=== PATIENT | female | born 1955 | race Two or more races ===

== ENCOUNTER 2019-06-23 17:05 | Emergency (ER) | payer MEDICARE ==
[~2019-06-23] VITALS: Ht 157.5 cm; Wt 65.8 kg
[~2019-06-23 17:05] MED LIST: METO10 PO; OXYACE5T PO; OXYC5 PO; PRED20 PO; ROPI2 PO; RXOXYACE PO; SERT100 PO
== END 2019-06-23 20:49 | disposition home or self-care (01) ==
LOC: ER 17:05
DX: M50.322 Other cervical disc degeneration at C5-C6 level (principal); M50.323 Other cervical disc degeneration at C6-C7 level; M62.838 Other muscle spasm; Z79.891 Long term (current) use of opiate analgesic; Z79.899 Other long term (current) drug therapy; Z79.52 Long term (current) use of systemic steroids; F32.9 Major depressive disorder, single episode, unspecified
CPT/HCPCS: 96372; 99283-25; J1100; J1885; J3010

== ENCOUNTER → 2019-07-09 | Outpatient (CLI) | payer MEDICARE | END | disposition home or self-care (01) | LOC: LAB 14:08 → LAB SHORT 14:08 | DX: E11.9 Type 2 diabetes mellitus without complications (principal) | CPT/HCPCS: 82043 ==

== ENCOUNTER → 2020-09-18 | Outpatient (CLI) | payer MEDICARE ==
[2020-09-18 22:49] LABS: Microalb/Creat Ratio UR, Rand 21.899 mg/g (0.000-30.000); Microalbumin, Random Urine 39.2 mg/L (0.000-20.000)
== END | disposition home or self-care (01) ==
LOC: LAB 15:00 → LAB SHORT 15:00
PROVIDERS: Family Medicine
DX: E11.59 Type 2 diabetes mellitus with other circulatory complications (principal)
CPT/HCPCS: 82043; 82570

== ENCOUNTER → 2022-01-07 | Outpatient (CLI) | payer MEDICARE | END | disposition home or self-care (01) | LOC: LAB SHORT 14:29 → LAB 14:29 | DX: E11.9 Type 2 diabetes mellitus without complications (principal) | CPT/HCPCS: 82043 ==

== ENCOUNTER 2022-06-18 07:36 | Day surgery (SDC) | payer MEDICARE ==
[~2022-06-18] VITALS: Ht 157.5 cm; Wt 59.0 kg
== END 2022-06-18 09:56 | disposition home or self-care (01) ==
LOC: ORSCSDS 07:36
PROVIDERS: Orthopaedic Surgery
PROC: 01N50ZZ Release Median Nerve, Open Approach (ICD-10-PCS; principal; 2022-06-18 09:00)
DX: G56.01 Carpal tunnel syndrome, right upper limb (principal); I10 Essential (primary) hypertension; E78.5 Hyperlipidemia, unspecified; F32.A Depression, unspecified; E11.9 Type 2 diabetes mellitus without complications; Z79.899 Other long term (current) drug therapy
CPT/HCPCS: 82947; J0690; J2250; J3010; J7120

== ENCOUNTER 2022-07-03 17:49 | Inpatient (IN) | payer MEDICARE ==
[~2022-07-03] VITALS: Ht 157.5 cm; Wt 59.0 kg
[2022-07-03 23:21] LABS: BASOPHILS ABSOLUTE AUTO 0.05 K/mm3 (0.00-0.23); BASOPHILS PERCENT AUTO 1 % (0-2); EOSINOPHILS ABSOLUTE AUTO 0.06 K/mm3 (0.00-0.68); EOSINOPHILS PERCENT AUTO 1 % (0-6); Hematocrit 29.5 % (33.0-51.0); Hemoglobin 9.5 g/dL (11.5-16.0); IMMATURE GRAN ABSOLUTE AUTO 0.01 K/mm3 (0.00-0.10); IMMATURE GRAN PERCENT AUTO 0 % (0-1); LYMPHOCYTES ABSOLUTE AUTO 1.95 K/mm3 (0.84-5.20); LYMPHOCYTES PERCENT AUTO 33 % (21-46); MONOCYTES ABSOLUTE AUTO 0.47 K/mm3 (0.16-1.47); MONOCYTES PERCENT AUTO 8 % (4-13); Mean Corpuscular HGB 30.3 pg (26.0-34.0); Mean Corpuscular HGB Conc 32.2 g/dL (31.5-36.5); Mean Corpuscular Volume 94 fL (80-100); Mean Platelet Volume 9.7 fL (9.1-12.4); NEUTROPHILS PERCENT AUTO 57 % (41-73); Platelet Count 451 K/mm3 (150-400); RDW Coefficient Variation 13.8 % (11.7-14.2); RDW Standard Deviation 46.9 fL (35.1-46.3); Red Blood Cell Count 3.14 M/mm3 (3.80-5.20); White Blood Cell Count 5.94 K/mm3 (4.00-11.30)
[2022-07-03 23:38] LABS: Albumin, Blood 2.7 g/dL (3.4-5.0); Albumin/Globulin Ratio 0.9 (0.8-1.8); Bilirubin, Total 0.3 mg/dL (0.1-1.0); Bun/Creatinine Ratio 15.2 (12.0-20.0); Calcium, Blood 11.2 mg/dL (8.5-10.1); Creatinine, Blood 0.79 mg/dL (0.40-1.00); Potassium, Blood 3.7 mmol/L (3.5-5.5); Total Protein, Blood 5.7 g/dL (6.4-8.2)
[2022-07-04 01:01] LABS: Prothrombin Time Results 10.5 Sec (9.7-11.5)
== END 2022-07-04 13:16 | disposition home or self-care (01) | DRG 93 ==
LOC: ER 17:49 → ERHOLD 07-04 03:18
PROVIDERS: Family Medicine; Student in an Organized Health Care Education/Training Program; ADMIT Family Medicine
DX: G95.29 Other cord compression (principal); E83.52 Hypercalcemia; E11.9 Type 2 diabetes mellitus without complications; I10 Essential (primary) hypertension; M79.81 Nontraumatic hematoma of soft tissue; M48.02 Spinal stenosis, cervical region; M25.78 Osteophyte, vertebrae; F32.A Depression, unspecified; M54.50 Low back pain, unspecified; Z96.659 Presence of unspecified artificial knee joint; Z79.899 Other long term (current) drug therapy; Z98.890 Other specified postprocedural states; Z79.52 Long term (current) use of systemic steroids; Z88.8 Allergy status to other drugs, medicaments and biological substances; Z79.891 Long term (current) use of opiate analgesic
CPT/HCPCS: 36415; 80053; 82330; 82728; 82947; 83540; 83550; 83605; 83970; 85025; 85610; 87040; 96374; 96375; 96376; 99285-25; A9270; J1170; J2405; J3010

== ENCOUNTER → 2022-11-22 | Outpatient (CLI) | payer MEDICARE ==
[2022-11-28 12:47] LABS: Performing Lab SYMBIODX; Test Name TISSUE BIOPSY
== END ==
LOC: LAB SHORT 11:41 → LAB 11:41
PROVIDERS: Pathology Clinical Pathology/Laboratory Medicine
DX: M67.431 Ganglion, right wrist (principal); M25.531 Pain in right wrist
CPT/HCPCS: 88305; 88313

== ENCOUNTER 2023-08-08 06:12 | Emergency (ER) | payer MEDICARE ==
[~2023-08-08] VITALS: Ht 157.5 cm; Wt 59.0 kg
[2023-08-08 07:02] LABS: BASOPHILS ABSOLUTE AUTO 0.14 K/mm3 (0.00-0.23); BASOPHILS PERCENT AUTO 2 % (0-2); EOSINOPHILS ABSOLUTE AUTO 0.05 K/mm3 (0.00-0.68); EOSINOPHILS PERCENT AUTO 1 % (0-6); Hematocrit 32.2 % (33.0-51.0); Hemoglobin 10.7 g/dL (11.5-16.0); IMMATURE GRAN ABSOLUTE AUTO 0.01 K/mm3 (0.00-0.10); IMMATURE GRAN PERCENT AUTO 0 % (0-1); LYMPHOCYTES ABSOLUTE AUTO 1.06 K/mm3 (0.84-5.20); LYMPHOCYTES PERCENT AUTO 17 % (21-46); MONOCYTES ABSOLUTE AUTO 1.28 K/mm3 (0.16-1.47); MONOCYTES PERCENT AUTO 21 % (4-13); Mean Corpuscular HGB 32.4 pg (26.0-34.0); Mean Corpuscular HGB Conc 33.2 g/dL (31.5-36.5); Mean Corpuscular Volume 98 fL (80-100); NEUTROPHILS ABSOLUTE AUTO 3.63 K/mm3 (1.96-9.15); NEUTROPHILS PERCENT AUTO 59 % (41-73); Platelet Count 329 K/mm3 (150-400); RDW Coefficient Variation 14.5 % (11.7-14.2); RDW Standard Deviation 51.4 fL (35.1-46.3); White Blood Cell Count 6.17 K/mm3 (4.00-11.30)
[2023-08-08 07:12] LABS: Bun/Creatinine Ratio 38.6 (12.0-20.0); Calcium, Blood 8.5 mg/dL (8.5-10.1); Creatinine, Blood 0.39 mg/dL (0.40-1.00); Potassium, Blood 4.3 mmol/L (3.5-5.5)
[2023-08-08] MEDS ORDERED: AMOCLA250S PO (08:34)
[2023-08-08] MEDS ORDERED: Ondansetron4 MG/2 ML IM (08:34)
[2023-08-08 10:18] VITALS: BP 128/80
== END 2023-08-08 09:49 | disposition home or self-care (01) ==
LOC: ER 06:12
PROVIDERS: Student in an Organized Health Care Education/Training Program
DX: J95.01 Hemorrhage from tracheostomy stoma (principal); T85.79XA Infection and inflammatory reaction due to other internal prosthetic devices, implants and grafts, initial encounter; L03.221 Cellulitis of neck; X58.XXXA Exposure to other specified factors, initial encounter; Z88.8 Allergy status to other drugs, medicaments and biological substances; E11.9 Type 2 diabetes mellitus without complications; I10 Essential (primary) hypertension
CPT/HCPCS: 31720; 70491; 71046; 80048; 85025; 96374; 99285-25; A9270; J2270; Q9967

== ENCOUNTER → 2023-08-12 | Outpatient (CLI) | payer MEDICARE ==
[~2023-08-12] MED LIST changes: +AMOCLA250S PO; +Ondansetron4 MG/2 ML IM
== END ==
LOC: LAB 16:20 → LAB SHORT 16:20
DX: Z43.0 Encounter for attention to tracheostomy (principal)
CPT/HCPCS: 87070; 87075; 87185; 87205

== ENCOUNTER 2023-10-26 19:55 | Emergency (ER) | payer MEDICARE ==
[~2023-10-26] VITALS: Ht 157.5 cm; Wt 56.2 kg
[2023-10-26 20:39] VITALS: BP 112/57
[2023-10-26] MEDS ORDERED: BISA10S PR (21:44)
== END 2023-10-26 23:00 | disposition home or self-care (01) ==
LOC: ER 19:55
DX: K59.00 Constipation, unspecified (principal); K62.5 Hemorrhage of anus and rectum; E11.9 Type 2 diabetes mellitus without complications; I10 Essential (primary) hypertension; E85.81 Light chain (AL) amyloidosis; Z93.0 Tracheostomy status
CPT/HCPCS: 74018; 99284-25; A9270

== ENCOUNTER 2023-11-05 18:28 | Inpatient (IN) | payer MEDICARE ==
[~2023-11-05] VITALS: Ht 157.5 cm; Wt 63.0 kg
[~2023-11-05 18:28] MED LIST changes: +BISA10S PR
[2023-11-05 19:35] LABS: Calcium, Ionized (POC) 1.17 mmol/L (1.10-1.46); Chloride (POC) 94 mmol/L (98-108); Creatinine (POC) 0.4 mg/dL (0.6-1.0); Glucose (ISTAT POC) 150 mg/dL (70-99); Hemoglobin (POC) 10.2 g/dL (12.0-16.0); Potassium (POC) 4.2 mmol/L (3.5-5.5); Sodium (POC) 134 mmol/L (135-148); Total CO2 (POC) 31 mmol/L (21-32)
[2023-11-05 19:43] LABS: BASOPHILS ABSOLUTE AUTO 0.17 K/mm3 (0.00-0.23); BASOPHILS PERCENT AUTO 3 % (0-2); EOSINOPHILS ABSOLUTE AUTO 0.04 K/mm3 (0.00-0.68); EOSINOPHILS PERCENT AUTO 1 % (0-6); Hematocrit 30.4 % (33.0-51.0); Hemoglobin 9.9 g/dL (11.5-16.0); IMMATURE GRAN ABSOLUTE AUTO 0.02 K/mm3 (0.00-0.10); IMMATURE GRAN PERCENT AUTO 0 % (0-1); LYMPHOCYTES ABSOLUTE AUTO 1.76 K/mm3 (0.84-5.20); LYMPHOCYTES PERCENT AUTO 29 % (21-46); MONOCYTES ABSOLUTE AUTO 1.15 K/mm3 (0.16-1.47); MONOCYTES PERCENT AUTO 19 % (4-13); Mean Corpuscular HGB 32.6 pg (26.0-34.0); Mean Corpuscular HGB Conc 32.6 g/dL (31.5-36.5); Mean Corpuscular Volume 100 fL (80-100); Mean Platelet Volume 11.8 fL (9.1-12.4); NEUTROPHILS ABSOLUTE AUTO 2.89 K/mm3 (1.96-9.15); NEUTROPHILS PERCENT AUTO 48 % (41-73); Platelet Count 284 K/mm3 (150-400); RDW Coefficient Variation 15.7 % (11.7-14.2); RDW Standard Deviation 57.3 fL (35.1-46.3); Red Blood Cell Count 3.04 M/mm3 (3.80-5.20); White Blood Cell Count 6.03 K/mm3 (4.00-11.30)
[2023-11-05 20:06] LABS: International Normalized Ratio 1.01; Prothrombin Time Results 10.6 Sec (9.7-11.5)
[2023-11-05 20:13] LABS: Albumin, Blood 2.2 g/dL (3.4-5.0); Albumin/Globulin Ratio 0.7 (0.8-1.8); Bilirubin, Total 0.2 mg/dL (0.1-1.0); Bun/Creatinine Ratio 58.6 (12.0-20.0); Calcium, Blood 8.7 mg/dL (8.5-10.1); Creatinine, Blood 0.32 mg/dL (0.40-1.00); Globulin, Blood 3.1 g/dL (2.2-4.0); Potassium, Blood 4.4 mmol/L (3.5-5.5); Total Protein, Blood 5.3 g/dL (6.4-8.2)
[2023-11-05] MEDS ORDERED: CELE100 PO (21:41)
[2023-11-05] MEDS ORDERED: Revlimid25 MG PO (21:42)
[2023-11-05] MEDS ORDERED: ATOR20 PO (21:42)
[2023-11-05] MEDS ORDERED: DEXA1 PO (21:44)
[2023-11-05] MEDS ORDERED: VENL75ER PO (21:45)
[2023-11-05] MEDS ORDERED: FENTANYL TOP (21:45)
[2023-11-05] MEDS ORDERED: Vitamin D1000 UNI1 PO (21:46)
[2023-11-05 22:08] VITALS: BP 128/78
[2023-11-05 23:10] VITALS: BP 136/60
[2023-11-05 23:34] VITALS: BP 134/78
[2023-11-06] VITALS (9 sets, daily range): BP systolic 103–122; BP diastolic 52–76
[2023-11-06 05:15] LABS: Hematocrit 27.7 % (33.0-51.0); Hemoglobin 9.3 g/dL (11.5-16.0); Mean Corpuscular HGB 32.5 pg (26.0-34.0); Mean Corpuscular HGB Conc 33.6 g/dL (31.5-36.5); Mean Corpuscular Volume 97 fL (80-100); Mean Platelet Volume 11.5 fL (9.1-12.4); Platelet Count 212 K/mm3 (150-400); RDW Standard Deviation 57.2 fL (35.1-46.3); Red Blood Cell Count 2.86 M/mm3 (3.80-5.20); White Blood Cell Count 6.53 K/mm3 (4.00-11.30)
--- NOTE | 2023-11-06 05:29 | NUR ---
END OF SHIFT NOTE: PT ADMITTED WITH COMPLAINTS OF BLOOD IN STOOL. PT A/OX4. DAUGHTER AT BEDSIDE TO HELP COMMUNICATE PT NEEDS. PT ONLY MOUTHS WORDS. PT COMPLAINED OF ABDOMINAL PAIN AND MEDICATED PER DEC. PT HAS CHRONIC TRACH THAT WAS PLACED SEVERAL MONTHS AGO. PT HAS NEEDED SUCTIONED MULTIPLE TIMES T/O SHIFT. SPO2 >95% ON RA. 1 UNIT OF RBCS ADMINISTERED, PT TOLERATED WELL. BOWEL PREP ADMINISTERED VIA PEG TUBE. PT INCONTINENT OF BOWEL DUE TO COPIOUS AMOUNTS OF BLOODY STOOL. PT BEDBOUND AT BASELINE BUT ABLE TO COMMUNICATE DESIRE TO CHANGE POSITION IN BED. NO PRESSURE SORES PRESENT ON ADMISSION. PT HAS 2 PATENT PERIPHERAL IVS. LR RUNNING PER DEC. HGB STABLE. CALL LIGHT IN REACH AND BED IN LOWEST POSITION. PT AND FAMILY EDUCATED ON PLAN OF CARE.
[2023-11-06 05:42] LABS: Bun/Creatinine Ratio 52.5 (12.0-20.0); Calcium, Blood 8.5 mg/dL (8.5-10.1); Creatinine, Blood 0.36 mg/dL (0.40-1.00); Potassium, Blood 4.2 mmol/L (3.5-5.5)
--- NOTE | 2023-11-06 15:10 | NUR ---
Upon receiving a referral for spiritual care, I visited the patient. Spouse, Tristin, is bedside. He states that he is not Alevism but his is and could use some prayer. I knee down and spaek with patietn briefly. She only whispers but states she is holding up ok, that she would like to participate in communion when the Eucharistic [employer] Operating comes by and that she would appreciate a prayer being said. I gladly provide prayer and patient voices appreciation. I will cotninue to remain available to patient and family.
--- NOTE | 2023-11-06 17:51 | NUR ---
SHIFT SUMMARY; ASSUMED CARE AT 0700. A/A/OX4, NON VERBAL BUT ABLE TO MOUTH NEEDS AND WRITE ON WRITING BOARD. FAMILY AT BESIDE FOR DAY. UPON ASSUMING CARE CONSTANT FLOWING WATERY DIARRHEA. GOLYTLY PREP COMPLETED BY BI MANAGER RN. UPDATED TO THOM. VERBAL ORDER TO GIVEN GOLYTLY CONTINUOUSLY UNTIL STOOL IS CLEAR. VERBAL ORDER GIVEN FOR RECTAL TUBE. RECTAL TUBE EXPLAINED TO PT WHO INTITIALLY SHOOK HEAD "NO", THAN AFTER DISCUSSING NEED TO MONTIOR FOR CLEAR STOOL, RISK OF SKIN BREAKDOWN AND NO RECTAL CONTROL PT NODS HEAD "YES". RECTAL TUBE PLACED WITHOUT DIFFICULTY DRAINING LIQUID STOOL TO GRAVITY BAG. PREP CONTINUED T/O SHIFT, STOOL EVENTUALLY CLEAR WITH YELLOW COLOR. UPDATED DR. TOMAS OF NPO TIME AND STOOL STATUS. TAKEN TO DAY SURGERY FOR COLONOSCOPY AT 1745. PEG TUBE IN PLACED, FLUSHED AND CLAMPED AFTER GOLYTLY. TRACH IN PLACE, TRACH CARE DURING SHIFT. WITH SUCTION NEEDED. SPOUSE DOING MOST TRACH CARE. LR INFUSING AT 125ML/HR PER ORDERS. Q2 REPOSITIONING WITH FREQUENT LINEN CHANGES DURING SHIFT. WILL REPORT OFF TO BI MANAGER RN.
--- NOTE | 2023-11-06 18:13 | NUR ---
11/06/23 1813 Ayaka [place] History, Chart, Medications and Allergies reviewed before start of procedure.MONITOR INTACT WITH CONTINUOUS PULSE OXIMETRY, CONTINUOUS END TITAL CO2, AND INTERMITTENT BLOOD PRESSURE.3-LEAD EKG REVIEWED WITH PHYSICIAN PRIOR TO START OF PROCEDURE.O2 VIA N/C INTACT THROUGHOUT SEDATION/PROCEDURE.DR. GARCIA PROVIDING MAC.
[2023-11-07 03:51] VITALS: BP 116/74
[2023-11-07 04:42] LABS: BASOPHILS ABSOLUTE AUTO 0.07 K/mm3 (0.00-0.23); BASOPHILS PERCENT AUTO 2 % (0-2); EOSINOPHILS PERCENT AUTO 0 % (0-6); Hematocrit 24.5 % (33.0-51.0); Hemoglobin 8.1 g/dL (11.5-16.0); IMMATURE GRAN ABSOLUTE AUTO 0.01 K/mm3 (0.00-0.10); IMMATURE GRAN PERCENT AUTO 0 % (0-1); LYMPHOCYTES ABSOLUTE AUTO 1.14 K/mm3 (0.84-5.20); LYMPHOCYTES PERCENT AUTO 29 % (21-46); MONOCYTES ABSOLUTE AUTO 0.92 K/mm3 (0.16-1.47); MONOCYTES PERCENT AUTO 24 % (4-13); Mean Corpuscular HGB Conc 33.1 g/dL (31.5-36.5); Mean Corpuscular Volume 97 fL (80-100); Mean Platelet Volume 11.6 fL (9.1-12.4); NEUTROPHILS ABSOLUTE AUTO 1.75 K/mm3 (1.96-9.15); NEUTROPHILS PERCENT AUTO 45 % (41-73); Platelet Count 196 K/mm3 (150-400); RDW Coefficient Variation 16.3 % (11.7-14.2); RDW Standard Deviation 57.7 fL (35.1-46.3); Red Blood Cell Count 2.53 M/mm3 (3.80-5.20); White Blood Cell Count 3.89 K/mm3 (4.00-11.30)
[2023-11-07 05:02] LABS: International Normalized Ratio 1.04; Prothrombin Time Results 10.9 Sec (9.7-11.5)
[2023-11-07 05:09] LABS: Albumin, Blood 2.1 g/dL (3.4-5.0); Albumin/Globulin Ratio 0.8 (0.8-1.8); Bilirubin, Total 0.5 mg/dL (0.1-1.0); Bun/Creatinine Ratio 48.5 (12.0-20.0); Calcium, Blood 8.7 mg/dL (8.5-10.1); Creatinine, Blood 0.27 mg/dL (0.40-1.00); Globulin, Blood 2.6 g/dL (2.2-4.0); Magnesium, Blood 1.7 mg/dL (1.6-2.4); Phosphorus, Blood 2.9 mg/dL (2.5-4.9); Potassium, Blood 3.1 mmol/L (3.5-5.5); Total Protein, Blood 4.7 g/dL (6.4-8.2)
--- NOTE | 2023-11-07 06:29 | NUR ---
SHIFT SUMMARY NO ACUTE CHANGES DURING NOC. SLEPT INTERMITTENTLY. USES CALL LIGHT APPROPRIATELY. AT BEDSIDE. VSS. MONITOR SHOWS NSR, RATE 80s-90s. AFEBRILE. RA SATS STABLE. RESPIRATIONS EVEN AND UNLABORED. TRACH SITE CLEAR. OCCASIONALLY USES HUMIDIFIED AEROSOL TO TRACH. MEDICATED WITH TYLENOL 650MG PT X 2 DOSES FOR C/O HEADACHE. ALSO MEDICATED WITH FENTANYL 25MCG IV X 1 DOSE FOR C/O HEADACHE AND GENERAL DISCOMFORT. PEG TUBE CLAMPED AT THIS TIME. INCONTINENT OF URINE AT TIMES. PUREWICK IN PLACE.
[2023-11-07 07:35] VITALS: BP 134/82
[2023-11-07 11:35] VITALS: BP 133/96
[2023-11-07 16:51] VITALS: BP 128/99
--- NOTE | 2023-11-07 18:14 | NUR ---
SHIFT SUMMARY PT IS A&OX4, AND CALLS APPROPRAITELY. DUE TO HER TRACH SHE HAS TROUBLE SPEAKING BUT HAS A COMMUNICATION TABLET SHE WRITES ON WHEN SHE IS NOT ABLE TO SPEAK OR COMMUNICATE. PT HAS RECIPICATED UNDERSTANDING OF EDUCATION, CARE, AND UPDATED THROUGHOUT THE SHIFT. SHE HAS BEEN ON RA MOST OF THE DAY WITH SHORT PERIODS ON THE HUMIDIFIED TRACH COLLAR. SHE HAS REQURIED SUCTION A FEW TIMES THIS SHIFT. SHE HAS BEEN STARTED ON BOLUS FEEDS AND HAS TOLERATED THEM WELL. THE PT HAS HAD TWO BOWEL MOVEMENTS THIS SHIFT THEY HAVE BEEN SOFT, AND BROWN. ONE HAD A SMALL SPOT OF RED, THE CHARGE NURSE LAID EYES ON IT AND STATED IT WAS FINE. SHE AHS HAD SOME PAIN WITH HER RESTLESS LEGS AND WE TRIED FLEXRIL AND IT DID NOT HELP. DR. MEIJA ADDED A PRN WHICH RELIEVED THE PT'S RESTLESS LEGS AFTER ABOUT 30 MINUTES. NO ACUTE EVENTS THIS SHIFT. FIRE IGNITION RISKS HAVE BEEN ASSESSED AND FAMILY HAS BEEN UPDATED. THE PT HAS HAD NO ACUTE EVENTS THIS SHIFT.
[2023-11-07 20:22] VITALS: BP 99/79
[2023-11-08 04:12] LABS: BASOPHILS ABSOLUTE AUTO 0.11 K/mm3 (0.00-0.23); BASOPHILS PERCENT AUTO 2 % (0-2); EOSINOPHILS ABSOLUTE AUTO 0.02 K/mm3 (0.00-0.68); EOSINOPHILS PERCENT AUTO 0 % (0-6); Hematocrit 25.9 % (33.0-51.0); Hemoglobin 8.5 g/dL (11.5-16.0); IMMATURE GRAN ABSOLUTE AUTO 0.01 K/mm3 (0.00-0.10); IMMATURE GRAN PERCENT AUTO 0 % (0-1); LYMPHOCYTES ABSOLUTE AUTO 1.43 K/mm3 (0.84-5.20); LYMPHOCYTES PERCENT AUTO 23 % (21-46); MONOCYTES ABSOLUTE AUTO 1.74 K/mm3 (0.16-1.47); MONOCYTES PERCENT AUTO 28 % (4-13); Mean Corpuscular HGB 32.1 pg (26.0-34.0); Mean Corpuscular HGB Conc 32.8 g/dL (31.5-36.5); Mean Corpuscular Volume 98 fL (80-100); Mean Platelet Volume 10.9 fL (9.1-12.4); NEUTROPHILS ABSOLUTE AUTO 2.91 K/mm3 (1.96-9.15); NEUTROPHILS PERCENT AUTO 47 % (41-73); Platelet Count 254 K/mm3 (150-400); RDW Coefficient Variation 16.1 % (11.7-14.2); RDW Standard Deviation 57.3 fL (35.1-46.3); Red Blood Cell Count 2.65 M/mm3 (3.80-5.20); White Blood Cell Count 6.22 K/mm3 (4.00-11.30)
[2023-11-08 04:29] LABS: Albumin, Blood 2.1 g/dL (3.4-5.0); Anion Gap 4 mmol/L (6-16); Blood Urea Nitrogen 16 mg/dL (8-24); Bun/Creatinine Ratio 35.4 (12.0-20.0); CO2, Blood 31 mmol/L (21-32); Calcium, Blood 8.4 mg/dL (8.5-10.1); Chloride, Blood 108 mmol/L (98-108); Creatinine, Blood 0.45 mg/dL (0.40-1.00); Glomerular Filtration Rate 104 (60-); Glucose, Blood 166 mg/dL (70-99); Magnesium, Blood 1.7 mg/dL (1.6-2.4); Phosphorus, Blood 2.5 mg/dL (2.5-4.9); Potassium, Blood 3.3 mmol/L (3.5-5.5); Sodium, Blood 143 mmol/L (136-145)
[2023-11-08 04:39] VITALS: BP 131/82
--- NOTE | 2023-11-08 05:33 | NUR ---
SHIFT SUMMARY THIS RN ASSUMED CARE OF PATIENT AT 1900. PT A&O X4. ABLE TO MAKE NEEDS KNOWN. DIFFICULTY COMMUNICATING D/T TRACH. VITALS STABLE. FAMILY AT BEDSIDE T/O THIS SHIFT. UP TO BSC WITH 1P ASSIST. SUCTIONING PRN. BED IN LOWEST POSITION AND CALL LIGHT WITHIN REACH. THIS RN WILL REPORT TO ONCOMING SHAYLAHIFT RN.
[2023-11-08 06:36] LABS: PRO B NATRIURETIC PEPTIDE NT 382 pg/mL (0-124)
[2023-11-08 07:25] VITALS: BP 121/64
[2023-11-08] MEDS ORDERED: ACET325UDC PT (11:38)
[2023-11-08] MEDS ORDERED: MIRALAX1714 PT (11:39)
[2023-11-08] MEDS ORDERED: POTA20LUD PT (11:40)
[2023-11-08 12:02] VITALS: BP 116/93
--- NOTE | 2023-11-08 12:21 | NUR ---
U O7 D/C AT 1218 I WENT OVER D/C INSTRUCTIONS WITH THE PT, SON, AND HER ROSA ISELA. ALL BELONGINGS WERE SENT WITH THE PT. VS STABLE. WE HAVE HAD NO ACUTE EVENTS THIS SHIFT. IV'S D/C'D BY THE LABORATORY MECHANIC HELPER.
== END 2023-11-08 12:18 | disposition home health service (06) | DRG 546 ==
LOC: ER 18:28 → PCU 18:29
PROVIDERS: Family Medicine; Internal Medicine Gastroenterology; Student in an Organized Health Care Education/Training Program; ADMIT Internal Medicine
PROC: 0DJD8ZZ Inspection of Lower Intestinal Tract, Via Natural or Artificial Opening Endoscopic (ICD-10-PCS; principal; 2023-11-06 10:15)
DX: E85.81 Light chain (AL) amyloidosis (principal); D62 Acute posthemorrhagic anemia; K62.6 Ulcer of anus and rectum; I10 Essential (primary) hypertension; E11.9 Type 2 diabetes mellitus without complications; G89.29 Other chronic pain; K59.09 Other constipation; Z66 Do not resuscitate; Z79.52 Long term (current) use of systemic steroids; Z79.1 Long term (current) use of non-steroidal anti-inflammatories (NSAID); Z79.2 Long term (current) use of antibiotics; Z96.659 Presence of unspecified artificial knee joint
CPT/HCPCS: 31720; 36415; 36430; 80047; 80048; 80053; 80069; 82947; 83735; 83880; 84100; 84484; 85014; 85025; 85027; 85610; 86850; 86900; 86901; 86923; 93005; 93010; 94762; 96365; 96368; 96375; 96376; 99285; A9270; C9113; G0378; J3010; J3475; J3480; J7040; J7120; P9016